=== PATIENT | male | born 1965 | race Caucasian/White ===

== ENCOUNTER 2022-06-15 16:25 | Outpatient (CLI) | payer OTHER, SELFPAY ==
[2022-06-15 21:40] LABS: Magnesium* 2.4 mg/dL (1.5-2.6)
== END 2022-06-15 16:26 | disposition home or self-care (01) ==
PROVIDERS: PCP Family Medicine; Visit Provider Family Medicine
DX: Z00.00 Encounter for general adult medical examination without abnormal findings (principal); M79.604 Pain in right leg; M79.605 Pain in left leg; R25.2 Cramp and spasm
CPT/HCPCS: 83735

== ENCOUNTER 2022-06-25 14:26 | Outpatient (CLI) | payer OTHER, SELFPAY ==
--- NOTE | 2022-06-25 14:30 | MR_ITS ---
[facility] [address] [facility] [address] Phone:?[phone] Fax:?[phone] Referring Physician Information: Danilo Giordano M.D. [address] [facility] [address] Phone:?[phone] Fax:?[phone] Patient:?Renny Nava D.O.B:?1965 Sex:?Male Phone:?[phone] [facility] MRN:?[id number] Exam Date:?06/25/2022 ? EXAM: MR LUMBAR SPINE WITHOUT CONTRAST 1.5T CLINICAL INFORMATION: Anesthesia of the skin. No injury. Evaluate for neural impingement. TECHNICAL INFORMATION: T1, T2 and STIR sagittal sections through the lumbar spine with T1 and T2 FSE stacked axial sections and T2 FSE angled axial sections through L5-S1. COMPARISON IMAGES: MRI dated 10/17/2021 and x-rays dated 10/03/2021. INTERPRETATION:?Segmentation and Alignment: Lordotic alignment of five lumbar vertebrae with a mild lumbar curve to the left. Sacrum and Sacroiliac joints:?Normal sacrum and sacroiliac joints. L5-S1: Mild to moderate disc degeneration with dorsal bulging, normal facet joints and no stenosis or impingement. L4-5: Spondylosis with mild dorsal bulging, mild right facet arthrosis and no stenosis or impingement. L3-4: Spondylosis with mild disc space narrowing on the right, normal facet joints and no stenosis or impingement. L2-3, L1-2 and T12-L1: Intervertebral discs unremarkable with mild ventral spondylosis at T12-L1, normal facet joints and no stenosis or impingement. Conus: Normal signal intensity within the conus medullaris. No intradural mass or arachnoidal adhesions. Osseous and paraspinous structures: Normal signal intensity within the vertebral marrow spaces. No fracture or avulsion. No destructive bone lesion and no paraspinous mass. Incidental sigmoid diverticulosis. CONCLUSION: 1. Mild to moderate L5-S1 disc degeneration. 2. Mild right facet arthrosis at L4-5. 3. No disc herniation, stenosis or neural impingement. 4. No distal cord lesion, intradural mass or arachnoidal adhesions. 5. Comparison with 06/16/2021 shows no significant interval change. Electronically signed on 06/25/2022 6:14:00 PM by Dipak Casarez M.D.
== END 2022-06-25 14:27 | disposition home or self-care (01) ==
LOC: MRI 14:27
PROVIDERS: PCP Family Medicine; Visit Provider Family Medicine
DX: R20.0 Anesthesia of skin (principal); M51.37 Other intervertebral disc degeneration, lumbosacral region; M79.604 Pain in right leg; M79.605 Pain in left leg
CPT/HCPCS: 72148

== ENCOUNTER 2022-06-28 16:22 | Outpatient (CLI) | payer OTHER, SELFPAY | END 2022-06-28 16:23 | disposition home or self-care (01) | LOC: LKVREF 16:24 | PROVIDERS: PCP Family Medicine; Visit Provider Family Medicine | DX: D72.829 Elevated white blood cell count, unspecified (principal); I10 Essential (primary) hypertension; M25.551 Pain in right hip; R25.2 Cramp and spasm | CPT/HCPCS: 84443 ==

== ENCOUNTER 2022-08-13 15:22 | Emergency (ER) | payer OTHER, SELFPAY ==
[2022-08-13 15:45] VITALS: BP 139/94; PULSE 81; RESP 18; TEMP 36.8; O2SAT 97; BMI 26.5
--- NOTE | 2022-08-13 16:31 | CRLHL7_ITS ---
For Patients: As a result of the Century Cures Act, medical imaging exams and procedure reports are released immediately into your electronic medical record. You may view this report before your referring provider. If you have questions, please contact your health care provider. INDICATION: EPIGASTRIC PAIN TECHNIQUE: Chest 2 views. COMPARISON: 02/23/14 FINDINGS: Cardiovascular and mediastinum: Heart size and vasculature are normal in caliber and appearance. Mediastinum is within normal limits. Lungs and pleural spaces: Lungs are clear. No sign of infiltrate or mass. No sign of pleural effusion. No pneumothorax. Bones and soft tissues: No significant findings. IMPRESSION: Unremarkable chest. Dictated by: Pedro Burnett MD @ 08/13/2022 17:13:59 (Electronically Signed)
--- NOTE | 2022-08-13 16:37 | ED_ITS ---
HPI - General Adult General Time Seen by Provider: 16:37 Date Seen: 08/13/22 Chief complaint: Abdominal Pain Stated complaint: PAIN IN CHEST JUST BELOW STERNUM - CAN'T SLEEP Time Seen by Provider: 08/13/22 16:21 History of Present Illness HPI narrative: 57-year-old male presents for evaluation of epigastric pain for 2 days. patient reports that for the last 2 days he has had a constant relatively severe his epigastrium. He points to just below his xiphoid as the location of this. He has not had any injury there. The pain does not radiate. Does not have shortness of breath or nausea or vomiting. No previous cardiac history. Re ports he has been able to eat and in fact when he eats it is a little better. When he was an empty stomach it feels a little worse. He has been taking a lot of ibuprofen several weeks due since his hip. He also takes omeprazole for chronic his stools have been normal without blood or melena. He has had no fever. Pain is not worse with activity or relieved by rest. He does not smoke. He previously drink alcohol but has not had any for about 2 months Related Data Home Medications Medication Instructions Recorded Confirmed diphenoxylate-atropine 2.5 1 tab PO DAILY PRN 06/15/22 06/15/22 mg-0.025 mg tablet omeprazole 20 mg capsule,delayed 20 mg PO DAILY 06/15/22 06/15/22 release magnesium oxide 500 mg tablet 500 mg PO QDAY 06/28/22 06/28/22 potassium 20 mg chewable tablet mg PO DAILY 07/12/22 07/12/22 Previous Rx's Medication Instructions Recorded diazepam 5 mg tablet (Valium) 2.5 mg PO BID PRN muscle spasm #30 06/28/22 tabs hydrocodone 5 mg-acetaminophen 325 1 tab PO Q6H PRN pain #14 tabs 06/28/22 mg tablet Allergies Allergy/AdvReac Type Severity Reaction Status Date / Time solifenacin Allergy Intermediate Pain Verified 07/12/22 15:11 naproxen Allergy Mild pain Verified 07/12/22 15:11 nortriptyline AdvReac Mild Vomiting Verified 07/12/22 15:11 Review of Systems Narrative: He has had right hip pain that has been diagnosed as bursitis. He has been taking a lot of ibuprofen for this. Or injury. No similar problems previously. [facility] Medical History Hypocalcemia Leukocytosis Surgical History History of bladder surgery History of hernia repair Family History Father Dementia Sister Hodgkin's lymphoma Mother Non-Hodgkin's lymphoma Social History Narrative: Non-smoker Rarely consumes alcohol Smoking Status: Never smoker Do you use any of these nicotine containing products: None Second hand tobacco smoke exposure: No How often do you have a drink containing alcohol: monthly or less How often do you have six or more drinks on one occasion: Never AUDIT-C Alcohol total score: 1 Non-prescribed substance use: denies use Exam Narrative: Exam Narrative: He is alert and appears in no distress. He gives his own history. Eyes are normal. Sclerae nonicteric. Oral supple without mass or adenopathy. No jugular venous distention. Respiratory good air exchange in all lung haskins. Cardiovascular: S1, S2, regular rate and rhythm. no murmur gallop or rub. Abdomen: BS are active. Abdomen is soft with mild epigastric tenderness that also extends into the right upper quadrant. I do not palpate a mass. There is no peritonitis. Extremities without edema. Says. He moves all 4 extremities well. Const: Vital Signs, click to edit/add: Vital Signs - 24 hr 08/13/22 15:45 08/13/22 17:49 Temperature 98.2 F Pulse Rate [Right Pulse Oximeter] 81 62 Respiratory Rate 18 Blood Pressure [Ri ght Upper Arm] 139/94 H 138/94 H Pulse Oximetry 97 95 Oxygen Delivery Me thod Room Air Documenting provider has reviewed patient's vital signs: yes Course Vital Signs Vital signs: Initial Vital Signs Temperature 98.2 F 08/13/22 15:45 Temperature Source Temporal Artery Scan 08/13/22 15:45 Pulse Rate 81 08/13/22 15:45 Respiratory Rate 18 08/13/22 15:45 Blood Pressure 139/94 H 08/13/22 15:45 Blood Pressure Mean 109 08/13/22 15:45 Blood Pressure Position Sitting 08/13/22 15:45 Pulse Oximetry 97 08/13/22 15:45 Oxygen Delivery Method 08/13/22 15:45 Vital Signs Temperature 98.2 F 08/13/22 15:45 Pulse Rate 81 08/13/22 15:45 Respiratory Rate 18 08/13/22 15:45 Blood Pressure 139/94 H 08/13/22 15:45 Pulse Oximetry 97 08/13/22 15:45 Oxygen Delivery Method 08/13/22 15:45 Temperature 98.2 F 08/13/22 15:45 Pulse Rate 62 08/13/22 17:49 Respiratory Rate 18 08/13/22 15:45 Blood Pressure 138/94 H 08/13/22 17:49 Pulse Oximetry 95 08/13/22 17:49 Oxygen Delivery Method 08/13/22 15:45 Medical Decision Making Lab Data Labs: Lab Results 08/13/22 08/13/22 08/13/22 Range/Units 16:31 17:05 17:05 WBC 8.96 (4.50-11.00) K/uL RBC 5.47 (4.30-5.90) m/uL Hgb 16.7 (13.5-17.5) gm/dL Hct 48.9 (37.0-53.0) % MCV 89 (80-100) fL MCH 31 (26-34) pg MCHC 34 (32-36) gm/dL RDW Coeff of Corie 12.7 (11.5-15.5) % Plt Count 272 (140-440) K/uL Neut % (Auto) 74.7 H (42.0-72.0) % Lymph % (Auto) 14.7 L (20-44) % Josephine % (Auto) 9.5 (0.0-11.0) % Eos % (Auto) 0.6 (0.0-7.0) % Baso % (Auto) 0.3 (0.0-3.0) % Neut # (Auto) 6.70 (1.7-7.0) K/uL Lymph # (Auto) 1.30 (0.90-2.90) K/uL Josephine # (Auto) 0.90 (0.00-0.90) K/UL Eos # (Auto) 0.05 (0.00-0.50) K/uL Baso # (Auto) 0.03 (0.00-0.30) K/uL Abs Immat Gran (auto) 0.02 (0.00-0.30) K/uL Sodium 139 (135-149) mmol/L Potassium 3.5 L (3.6-5.1) mmol/L Chloride 105 (96-114) mmol/L Carbon Dioxide 25 (20-32) mmol/L BUN 15 (7-30) mg/dL Creatinine 0.8 (0.5-1.5) mg/dL Estimated Creat Clear 106.46 Estimated GFR 104 ml/min Glucose 110 (60-115) mg/dL Calcium 9.0 (8.4-10.6) mg/dL Total Bilirubin 0.5 (0.1-1.5) mg/dL Direct Bilirubin 0.2 (0.0-0.5) mg/dL AST 24 (12-35) U/L ALT 17 (4-50) U/L Alkaline Phosphatase 66 (40-150) U/L Total Protein 7.3 (6.0-8.3) g/dL Albumin 4.4 (3.3-5.0) g/dL Lipase 162 (23-300) U/L POC Troponin I 0.00 L (0.01-0.04) ng/ml ECG Data Attestation: I personally reviewed and interpreted this ECG as follows: (Normal sinus rhythm. No acute ST-T changes) Discharge Plan Discharge Clinical Impression: Acute epigastric pain Patient Disposition: Home, Self-Care Condition: Improved Additional Instructions: The most likely cause of your pain is gastritis due to excessive ibuprofen use. Stop taking ibuprofen and take omeprazole 40 mg a day. You may use antacids as necessary. I recommend you get upper endoscopy to evaluate your stomach lining. Your doctor can arrange this. If you are not getting better with this evaluation I would consider evaluating her gallbladder further as the next step. Activity Level: No Restrictions Discharge Diet: Regular Prescriptions: No Action magnesium oxide 500 mg tablet 500 mg PO QDAY diazepam [Valium] 5 mg tablet 2.5 mg PO BID PRN (Reason: muscle spasm) Qty: 30 1RF hydrocodone-acetaminophen 5-325 mg tablet 1 tab PO Q6H PRN (Reason: pain) Qty: 14 0RF potassium 20 mg tablet,chewable PO DAILY omeprazole 20 mg capsule,delayed release(DR/EC) 20 mg PO DAILY Label Comments: TAKE 1 CAPSULE (20 MG) BY MOUTH DAILY diphenoxylate-atropine 2.5-0.025 mg tablet 1 tab PO DAILY PRN Label Comments: TAKE 1 TABLET BY MOUTH TWICE DAILY NEEDED Follow Up/Referrals: Danilo Giordano MD [Primary Care Provider] - (In 1 week) Stand Alone Forms: [employer] Info Instructions
--- OUTSIDE RECORDS SUMMARY | 2022-08-13 17:21 | XMS_ITS ---
:1965 Author Care Team Providers Name Role Phone ANTHONY LUNA MD Referring Provider [phone] Allergies Code Code System Name Reaction Severity Status Onset 170261 RxNorm Aleve ? ? Active ? 907927 RxNorm Vesicare ? ? Active ? Medications Name Status Start Date Stop Date ? ? cephalexin 500 mg capsule Completed ? 2021 TAKE ONE CAPSULE BY MOUTH THREE TIMES DAILY ciprofloxacin 500 mg tablet Completed ? 12/03 Take 1 tablet every 12 hours by oral route for 7 days. diphenoxylate-atropine 2.5 mg-0.025 mg tablet Completed ? 03/22/2022 TAKE 1 TABLET BY MOUTH TWICE DAILY NEEDED hydrochlorothiazide 12.5 mg capsule Active ? Not available TAKE 1 CAPSULE (12.5 MG) BY MOUTH DAILY hydrocortisone 2.5 % topical cream with perineal applicator Comp leted ? 12/28/2021 APPLY RECTALLY TWICE DAILY NEEDED omeprazole 20 mg capsule,delayed release Active ? Not available TAKE 1 CAPSULE (20 MG) BY MOUTH DAILY oxybutynin chloride ER 5 mg tablet,extended release 24 hr Comple lupe ? 12/28/2021 TAKE 1 TABLET BY MOUTH DAILY oxycodone 5 mg tablet Completed ? 12/28/2021 TAKE ONE TABLET BY MOUTH EVERY FOUR HOURS phenazopyridine 200 mg tablet Completed ? TAKE ONE TABLET BY MOUTH THREE TIMES DAILY NEEDED tramadol 50 mg tablet Completed ? 03/22/2022 TAKE 1 TABLET BY MOUTH EVERY 6 HOURS NEEDED Problems Name Status Onset Date Source ? Chronic Prostatitis Active 03/12/2017 History Overactive Bladder Active 03/12/2017 History Procedures Date Name Performed by ? 12/02/2012 Colonoscopy Thru Stoma Spx Information n ot available Notes: 12/02/2012 - COLONOSCOPY THRU S LINDY SPX 03/12/2012 Revise/remove Neuroelectrode Information not available Notes: 03/12/2012 - REVISE/REMOVE NEUR OELECTRODE 02/27/2012 Opn Impltj Tammy Sacral Nerve Information not available Notes: 02/27/2012 - IMPLANT NEUROELECT RODES 01/16/2012 Implant Neuroelectrodes Information not available Notes: 01/16/2012 - IMPLANT NEUROELECT RODES 02/06/2011 Anal/urinary Muscle Study Information no t available Notes: 02/06/2011 - ANAL/URINARY MUSCL E STUDY 02/06/2011 Cystometrogram W/vp integrity&up Information not a vailable Notes: 02/06/2011 - CYSTOMETROGRAM W/V P&UP 02/06/2011 Electro-uroflowmetry First Information n ot available Notes: 02/06/2011 - ELECTRO-UROFLOWMET RY FIRST 02/06/2011 Intraabdominal Pressure Test Information not available Notes: 02/06/2011 - INTRAABDOMINAL PRE SSURE TEST 01/24/2011 Cystoscopy Information not avai lable Notes: 01/24/2011 - CYSTOSCOPY 01/24/2011 Us Urine Capacity Measure Information no t available Notes: 01/24/2011 - US URINE CAPACITY MEASURE 10/10/2010 Us Urine Capacity Measure Information no t available Notes: 10/10/2010 - US URINE CAPACITY MEASURE ? Hernia Repair W/mesh Information not kizzy ilable Notes: Hernia Repair 12/04/2021 CT, [facility] [address] [place] [address] (Work Place) Notes: HN - Patient indicated: Cystome trogram w/vp integrity&up is not accurate. Results Lab Results None recorded. Past Encounters 03/22/2022 Pelvic and Perineal Pain Dipak Lynch, PAC: [address] [facility] , [address] [address], Ph. 12/28/2021 Pelvic and Perineal Pain; Screening for Malignant Neoplasm of Prostate Dipak Lynch, PAC: [address] [facility] , [address] [address], Ph. 11/16/2021 Chronic Prostatitis Dipak Lynch, PAC: [address] [facility] , [facility] [address], [place] [address], Ph. Social History Tobacco Smoking Status Never Smoker Vaccine List Vaccine Type COVID-19 (SARS-COV-2) vaccine, unspecifi ed 02/15/2021 03/02/2021 03/15/2021 COVID-19, mRNA, LNP-S, PF, 100 mcg/0.5 m L dose (Moderna) 02/15/2021 03/15/2021 Tdap 04/09/2016 Plan of Care Reminders Provider Appointments None recorded. ? ? Lab None recorded. ? ? Referral None recorded. ? ? Procedures None recorded. ? ? Surgeries None recorded. ? ? Imaging None recorded. ? ? Vitals 03/22/2022 10:30AM ESTABLISHED 20 Height Weight BMI 5 ft 11 in 185 lbs 25.8 kg/m2 12/28/2021 10:45AM ESTABLISHED 15 Height Weight BMI 5 ft 11 in 182 lbs 25.4 kg/m2 11/16/2021 03:30PM ESTABLISHED 30 Height Weight BMI 5 ft 11 in 180 lbs 25.1 kg/m2
--- OUTSIDE RECORDS SUMMARY | 2022-08-13 17:21 | XMS_ITS | Continuity of Care Document ---
:1965 Author Organization [facility] Address [address] [address] [place] [address] Phone Care Team Providers Name Role Phone Go Dave MITCHELL Unavailable Unavailable Allergies, Adverse Reactions, Alerts Substance Reaction Status Criticality No Known allergies Medications Medication Instructions Dosage Effective Dates Status Comment s (start - stop) diphenoxylate-atropine take 1 Tablet (2.5MG) 2.5 MG - Active 2.5 mg-0.025 mg tablet by oral route 4 times every day as needed cyclobenzaprine 10 mg take 1 Tablet (10MG) 10 MG - A ctive tablet by oral route every day prn ibuprofen 200 mg tablet take 1 - 2 Tablet 200 MG - Ac tive (200MG) by oral route every 6 hours as needed with food Antacid 550 mg-110 mg take one tablet as - Act isabel chewable tablet needed ranitidine 75 mg tablet take 1 tablet (75MG) - Active by oral route every day as needed oxybutynin chloride ER take 1 tablet (10MG) 10 MG - Act isabel 10 mg tablet,24 hr by oral route every extended release day Procedures Procedure Date Colonoscopy Flex; W/bx 1/mx Level Iv-surg Path Gross/micro Offic Cons New/estab Mod Routine Serum Collection [id number] Thyroid Stim Hormone Advance Directives Directive Yes / No Effective Date File Name No Information Encounters Encounter Practice Location Reason(s) Diagnoses Date Provider Provide rs Description For Visit Copied on Encounter [facility] No Information Alexey MITCHELL Refer ring [facility] Dave. Provider: [facility], Endoscopy [address] [place], [place], [place], [address], [id number], [place], [place], tel:+ [phone] , [place]. tel: [phone] [facility] Diverticulosis Of Emily MITCHELL R eferring [facility] Brittani. Prov ider: [facility], Endoscopy rticulosis Of [address] Colon [place] [address], [place], [place] [address] [place], [place], [address], [place] [id number], [address], [place], [place], [place], tel:+ [phone] [place], [phone] , [place]. tel: tel: [phone] Offic Cons [facility] Abdominal Diarrhea Emily MITCHELL [facility] pain Brittani. Provider: [facility], (chief [address] complaint) [place] [address], [address], [place], [place] [address] [place], [place], (soft) [address], [place] [phone], ([address], [place] complaint) [place], [place], [place], tel:+ [phone] [place], [phone] , [place]. tel: tel: [phone] Family History Family Member Type Diagnosis Age At Onset First degree family Problem (finding) No Family history of No history history of Colon Polyps First degree family Problem (finding) No history of Cancer, colo n history First degree family Problem (finding) Grandmother hx of colon history cancer First degree family Problem (finding) No history of Crohn's history First degree family Problem (finding) No history of Ulcerative history Colitis Payers Payer name Insurance type Covered alliance party ID Authorization(s ) [employer] [facility] [id number] Social History Type Description Quantity Date Captured Comments Sex Male Smoking Status No Information Chief Complaint And Reason For Visit No Information Reason For Referral Reason For Referral No Information Plan Of Treatment Date Type Action Status No Information History Of Present Illness Encounter Date Complaint History Of Present I llness No Information Functional Status Date Functional Assessment No Information Instructions Date Instruction Additional Informati on No Information Assessments Type Assessment Date No Information Patient Care Teams Name Effective Dates (start - stop) Status M embers No Information
--- OUTSIDE RECORDS SUMMARY | 2022-08-13 17:21 | XMS_ITS | Clinical Summary ---
:1965 Author Organization [facility] [place] [address] Care Team Providers Name Role Phone Danilo Giordano MD Primary Care Provider Allergies No known active allergies Medications Medication Sig Dispensed Refills Start Date End Date Status promethazine-codeine Take 5 mL by 120 mL 0 12/01/2012 Active (PHENERGAN WITH CODEINE) mouth every 4-6 6.25-10 mg/5 mL syrup hours as needed. ciprofloxacin (CIPRO) Take 1 tablet by 20 tablet 0 12/01/2012 Active 500 mg tablet mouth 2 times daily. cefuroxime axetil Take 1 tablet by 20 tablet 0 12/12/2012 Active (CEFTIN) 500 mg tablet mouth 2 times daily for 10 days Active Problems Not on file Encounters Date Type Specialty Care Team Description 07/13/2022 Hospital Encounter Pedro Jaramillo Ch, MD Rivera, Sidney W II, PT Discharge Summary - Domingo Camp II, PT - 07/13/2022 1:[address] [facility] Physical Therapy Discharge Summary Patient Name: Renny burns Date of Service: 07/13/2022 Start of Service: 05/09/22 Visit Count: Visit Count: 6 PT MEDICAL/TREATMENT DIAGNOS IS Greater trochanteric bursiti s of right hip ICD-10 M70.61 Referring MD/Provider: Pedro Jaramillo MD Insurance: [facility] DISCHARGE NOTE Start of Service: 05/09/22 End date of service: 2 Therapy Completed: Yes Final Outcome Tool: Tool Com plete: Final outcome tool completed Discharge Education: Patient education was given regarding home exercise program progression, maintenance of current status, and when to follow up with primary care provider. Therapist Assessment Patient (Renny) returns to 6th physical therapy session in treatment of chronic right lateral hip/thigh pain (greater trochanter bursitis), posterior right thigh (hamstrings tendinopathy), and right b uttocks (piriformis strain) pain to which he reports some improvement in low back pain symptoms, but no change in right buttocks or posterior thigh pain or functional ability. Renny demonstrates measure ments and finding related to compensatory muscle overuse strain of right vastus lateralis, piriformis, hamstrings, and tensor fascia cassandra, preceded by faulty, habitual postural alignment adaptations. He continues to presents in st ate of bilateral anterior pelvic tilt (indicated by (+) Miller's Test) and asymmetrical hip FA ER and IR PROM, which alters gait mechanics, compresses lumbar spine, and affects muscle activation of lumbo- pelvic-femoral stabilizers. Renny demonstrates significant sympathetic nervous system tone and inability to inhibit tone with use of any home exercise program technique in se ssion which typically indica yuly a high level of inflammation in multiple systems. He demonstrates proficiency of home exercise program in session. FOTO scores did not progress towards predicted. Dischar ged to home exercise program . Recommend return to physician for further assessment and recommendations on symptoms management. SUBJECTIVE SUBJECTIVE Patient Symptoms : Same Change in Functional Status: No Comments : Renny reports hav ing less cramping in the legs. The right lower back is better, but right outer hip, lateral thigh, and buttocks pain persist. Acute Pain Intensity (0-10): 6 Location: Right;Hip;Groin;Bi lateral;Lower;Leg (Greater trochanter) Quality: Ache;Cramping;Throb hali;Tightness;Pain;Pressure;Sore;Spasm Compliance with home exercis e program: Yes Home Exercise Comments : Per forming regularly, no concerns OBJECTIVE OUTCOME MEASURES (last 48 ho urs) Outcome Measures Row Name 07/13/22 1405 PT FOTO GROUP PT Initial FOTO FS 65 PT Predicted FOTO FS Change 16 PT Predicted FOTO FS Goal 8 1 PT Current FOTO FS 55 FOTO DOCUMENTATION 1 FOTO S core Postural??Screening (PROM, M MT, and Special Tests): Wowiz-Jsprit-Moqtmev ?? Left Right Hip IR (FA IR: seated) 43??d egrees 47 degrees FA IR Strength 4 / 5 (latera l knee, vastus lateralis, tensor fascia cassandra) 4-??/ 5 (gastrocnemius/soleus) Hip ER (FA ER: seated) 40??d egrees?? 35??degrees?? FA ER Strength 4 / 5 (adduct or) 4 / 5 (adductor) Miller's Test +?? + INTERVENTION Today's Interventions 1. Neuromuscular re-educatio n: To retrain functional movement patterns and improve biomechanics. (32 minutes) - Modified All-4 Belly Lift: 5 breaths, 5 sets. * Renny benefited from verba l and tactile cues to perform with good technique and engage hamstrings, gluteus medius/keith, and IO/TAs abdominals. - Left Side Lying, un-resist ed right gluteus keith (Left AF IR with Right FA ER): 5 breaths, 5 sets. * Patient benefited from geovani bal and tactile cues to help correctly perform hip shifting during technique to best activate hip rotators and prevent accessory rotation on lumbar spine. - Transfers: Sitting to [facility], Standing to sitting, Floor to standing. Emphasized sense of heel and arch pressure to use hip extensors to get up. 2. Therapeutic Exercise: To improve muscle strength, joint range of motion, and muscle endurance. (12 minutes) - Modified All Four Inferior Glute Keith, Adductor Andrew, and Quadratus Femoris Stretch: 5 breaths, 5 sets. * Patient required verbal an d tactile cues to help correctly position hip for optimal stretch and avoid lower back strain. Home Exercise Program: Modif ied All-4 Belly Lift; Seated Alternating Resisted Reciprocal Quadriceps Sets; Modified All Four Inferior Glute Keith, Adductor Andrew, and Quadratus Femoris Stretch; Left S mode Lying, un-resisted right gluteus keith (Left AF IR with Right FA ER). GOALS Patient goal: lower pain le katie in right hip and buttocks to allow improved tolerance to work, ADLs, and walking without limitations in 3-4 weeks or less. Goal Status Comments: Unable --Renny continues to report moderate right hip pain, and with occasional leg cramping, impacting tolerance to work, ADLs, walking, and other household duties. Patient will demonstrate: 50 -60 degrees of B hip FA ER PROM and 35-40 degrees of B hip FA IR PROM in order to: demonstrate optimized hip rotation to prevent compensatory rotation in SIJ contributing to pain pattern and disability in (weeks): 8 weeks Goal Status: Progress toward s goal Goal Status Comments: Improv ing--Renny demonstrates ability to increase bilateral hip FA ER PROM with use of HEP in session, required to reduce demand for accessory rotation through SIJ and lumbar spine contributing to pain patter n. He has resolved asymmetry, which typically reduces torque on SIJ and lumbar spine. Patient will demonstrate: 5- /5 MMT or greater strength of hip, knee, and trunk stabilizers in order to: to demonstrate strength required to prevent compensatory muscle overuse strain in R VL of quadrice ps and R piriformis contribu ting to pain pattern in (weeks): 10 weeks Goal Status: Not met Goal Status Comments: Unable --Renny continues to demonstrate moderate to significant functional strength deficits in knee, hip, and trunk stabilizers contributing to compensatory muscle overuse strain o f right vastus lateralis and continued right greater trochanter bursitis pains. Patient will demonstrate: 1/ 10 or less right hip pain in order to: improve tolerance to work, sitting prolonged, and other ADLs without limitations in (weeks): 8 weeks Goal Status: Not met Goal Status Comments: Unable --Renny continues to report greater than 1/10 on average right hip pain and leg cramping impacting tolerance to work, walking, and other household duties. PARTICIPATION Patient and/or caregiver par ticipated in goal selection and understand plan of care: Yes ADAPTATIONS Are cultural/age or other sp ecial adaptations required?: No PLAN Plan for next session: Disch arged to HEP for self-management of condition. 07/13/2022 Orders Only Domingo Camp II, PT <No scans attached> 07/13/2022 Travel 07/03/2022 Hospital Encounter Pedro Jaramillo Ch, MD Rivera, Sidney W II, PT 07/03/2022 Travel 06/26/2022 Hospital Encounter Pedro Jaramillo Ch, MD Rivera, Sidney W II, PT 06/26/2022 Travel 06/12/2022 Hospital Encounter Pedro Jaramillo Ch, MD Rivera, Sidney W II, PT 06/12/2022 Travel 05/28/2022 Hospital Encounter Pedro Jaramillo MD Conrado Marsh Sidney W II, PT 05/28/2022 Travel from Last 3 Months Social History Tobacco Use Types Packs/Day Years Used Date Never Assessed Sex Assigned at Date Recorded Not on file Plan of Treatment Health Maintenance Due Date Last Done Comments Tdap 1977 Depression screening for age 12+ 1978 BMI (ht and wt on same day) for age 18+ 1984 Hepatitis C screening for age 18-79 1984 Tetanus booster 1986 Colonoscopy through age 75 2011 Lipids for age 45-75 2011 Zoster (shingles) series for age 50+ (1 of 2016 2) COVID-19 vaccine series (3 - Booster for 08/15/2021 021, 02/15/2021 Moderna series) Influenza for age 50-64 08/02/2022 Results Not on filefrom Last 3 Months Insurance Payer Benefit Plan / Subscriber ID Effective Dates Phone Addre ss Type Group [facility] SHARED [id number] 2021-Presen [address] [address] [place] [address] [facility] SHARED [id number] 2021-Presen [address] [place] [address] Care Teams Film Crew Member Relationship Specialty Start Date End Date Danilo Giordano MD PCP - General Family Practice 12/21/21 [address] [place], [place] [address]
[2022-08-13 17:49] VITALS: BP 138/94; PULSE 62; O2SAT 95
[2022-08-13] MEDS: GI COCKTAIL (VISC LIDO/ANTACID) 30 ML PO (17:52)
[2022-08-13 18:09] LABS: Albumin* 4.4 g/dL (3.3-5.0); Basophils Absolute Auto 0.03 K/uL (0.00-0.30); Basophils Percent Auto 0.3 % (0.0-3.0); Chloride* 105 mmol/L (96-114); Eosinophils Absolute Auto 0.05 K/uL (0.00-0.50); Eosinophils Percent Auto 0.6 % (0.0-7.0); Hematocrit 48.9 % (37.0-53.0); Hemoglobin* 16.7 gm/dL (13.5-17.5); Immature Granulocytes Abs Auto 0.02 K/uL (0.00-0.30); Lymphocytes Percent Auto 14.7 % (20-44); Mean Corpuscular HGB Conc 34 gm/dL (32-36); Mean Corpuscular Hemoglobin 31 pg (26-34); Mean Corpuscular Volume 89 fL (80-100); Monocytes Percent Auto 9.5 % (0.0-11.0); Neutrophils Percent Auto 74.7 % (42.0-72.0); Platelet Count* 272 K/uL (140-440); RDW Coefficient of Variation % 12.7 % (11.5-15.5); Red Blood Count 5.47 m/uL (4.30-5.90); White Blood Count* 8.96 K/uL (4.50-11.00)
[2022-08-13 18:10] LABS: Potassium* 3.5 mmol/L (3.6-5.1); Sodium* 139 mmol/L (135-149)
[2022-08-13 18:12] LABS: Alkaline Phosphatase* 66 U/L (40-150); Aspartate Amino Transferase* 24 U/L (12-35); Bilirubin Direct* 0.2 mg/dL (0.0-0.5); Bilirubin Total* 0.5 mg/dL (0.1-1.5); Blood Urea Nitrogen* 15 mg/dL (7-30); Carbon Dioxide* 25 mmol/L (20-32); Creatinine* 0.8 mg/dL (0.5-1.5); Est. Creatinine Clearance* 106.46; Estimated Glomerular Filt Rate 104 ml/min; Glucose* 110 mg/dL (60-115); Total Protein* 7.3 g/dL (6.0-8.3)
[2022-08-13 18:13] LABS: Alanine Aminotransferase* 17 U/L (4-50); Lipase* 162 U/L (23-300)
[2022-08-13 18:15] LABS: Slide Review Reflex No
[2022-08-13 19:00] LABS: Troponin I* < 0.01 ng/mL (0.01-0.04)
== END 2022-08-13 19:15 | disposition home or self-care (01) ==
PROVIDERS: Emergency Provider Family Medicine; PCP Family Medicine
DX: R10.13 Epigastric pain (principal)
CPT/HCPCS: 36415; 71046; 80048; 80076; 83690; 84484; 85025; 93005; 99284; A9270

== ENCOUNTER 2022-09-06 10:56 | Outpatient (CLI) | payer OTHER, SELFPAY ==
--- OUTSIDE RECORDS SUMMARY | 2022-09-06 10:59 | XMS_ITS ---
:1965 Author Care Team Providers Name Role Phone ANTHONY LUNA MD Referring Provider [phone] Allergies Code Code System Name Reaction Severity Status Onset 154708 RxNorm Aleve ? ? Active ? 380863 RxNorm Vesicare ? ? Active ? Medications [...] ANAL/URINARY MUSCL E STUDY 02/06/2011 Cystometrogram W/vp digital marketing&up Information not a vailable Notes: 02/06/2011 - [...] Repair 12/04/2021 CT, Urogram [facility] [address] [facility] [address] [place] [address] (Work Place) Notes: HN - Patient indicated: Cystome trogram w/vp digital marketing&up is not accurate. Results Lab Results None recorded. Past Encounters 03/22/2022 Pelvic and Perineal Pain Dipak Lynch, PAC: [address] [facility] , [address] [address], Ph. 12/28/2021 Pelvic and Perineal Pain; Screening for Malignant Neoplasm of Prostate Dipak Lynch, PAC: [address] [facility] , [address] [address], Ph. 11/16/2021 Chronic Prostatitis Dipak Lynch, PAC: [address] [facility] , [facility] [address], [place] [address], Ph. Social History Tobacco Smoking Status Never [...]
--- OUTSIDE RECORDS SUMMARY | 2022-09-06 10:59 | XMS_ITS | Clinical Summary ---
:1965 Author Organization [facility] [place] [address] Care Team Providers Name Role Phone Danilo [...] PT - 07/13/2022 1:[address] [facility] Physical Therapy Discharge Summary Patient Name: Renny burns Date of Service: 07/13/2022 Start of Service: 05/09/22 Visit Count: Visit Count: 6 PT MEDICAL/TREATMENT DIAGNOS IS Greater trochanteric bursiti s of right hip ICD-10 M70.61 Referring MD/Provider: Pedro Jaramillo MD Insurance: [facility] ([facility] S ERVICES) DISCHARGE NOTE Start of Service: [...] Postural??Screening (PROM, M MT, and Special Tests): Umtwo-Gtjljn-Qpmllzi ?? Left Right Hip IR (FA IR: [...] lumbar spine. - Transfers: Sitting to [facility], Standing to sitting, Floor to standing. 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
[2022-09-07 00:16] LABS: PSA Screen* 2.65 ng/mL (0.10-4.00)
== END 2022-09-06 10:57 | disposition home or self-care (01) ==
LOC: LKVREF 10:57
PROVIDERS: PCP Family Medicine; Visit Provider Family Medicine
DX: Z00.00 Encounter for general adult medical examination without abnormal findings (principal); I10 Essential (primary) hypertension; Z12.5 Encounter for screening for malignant neoplasm of prostate
CPT/HCPCS: 84153

== ENCOUNTER 2022-09-18 08:55 | Outpatient (CLI) | payer OTHER, SELFPAY ==
--- OUTSIDE RECORDS SUMMARY | 2022-09-18 09:13 | XMS_ITS | Clinical Summary ---
:1965 Author Organization [facility] [place] [address] Care Team Providers Name Role Phone Danilo [...] II, PT - 07/13/2022 1:45 PM CDT [facility] Physical Therapy Discharge Summary Patient Name: Renny burns Date of Service: 07/13/2022 Start of Service: 05/09/22 Visit Count: Visit Count: 6 PT MEDICAL/TREATMENT DIAGNOS IS Greater trochanteric bursiti s of right hip ICD-10 M70.61 Referring MD/Provider: Pedro Jaramillo MD Insurance: [facility] S ERVICES) DISCHARGE NOTE Start of [...] Postural??Screening (PROM, M MT, and Special Tests): Jyjpy-Mdimkg-Siicuhh ?? Left Right Hip IR (FA IR: [...] lumbar spine. - Transfers: Sitting to [facility], Standing to sitting, Floor to standing. Emphasized [...] Rivera, Sidney W II, PT 06/26/2022 Travel from Last 3 Months Social History [...] Effective Dates Phone Addre ss Type Group [facility] SHARED [id number] 2021-Presen [address] [address] [place] [address] [facility] SHARED [id number] 2021-Presen [address] [place] [address] Care Teams Mixer Attendant Relationship Specialty Start Date End Date Danilo Giordano MD PCP - General Family Practice 12/21/21 [address] [place] [address]
--- OUTSIDE RECORDS SUMMARY | 2022-09-18 09:13 | XMS_ITS ---
:1965 Author Care Team Providers Name Role Phone ANTHONY LUNA MD Referring Provider [phone] Allergies Code Code System Name Reaction Severity Status Onset 896601 RxNorm Aleve ? ? Active ? 444820 RxNorm Vesicare ? ? Active ? Medications [...] ANAL/URINARY MUSCL E STUDY 02/06/2011 Cystometrogram W/vp clinical research&up Information not a vailable Notes: 02/06/2011 - [...] CT, Urogram [facility] [address] [facility] [address] [place] [address] (Work Place) Notes: HN - Patient indicated: Cystome trogram w/vp clinical research&up is not accurate. Results Lab Results None recorded. Past Encounters 03/22/2022 Pelvic and Perineal Pain Dipak Lynch, PAC: [address] [facility] , [address] [address], Ph. 12/28/2021 Pelvic and Perineal Pain; Screening for Malignant Neoplasm of Prostate Dipak Lynch, PAC: [address] [facility] , [address] [address], Ph. 11/16/2021 Chronic Prostatitis Dipak Lynch, PAC: [address] [facility] , [facility] [address], [place] [address], Ph. Social History Tobacco Smoking Status Never [...]
--- NOTE | 2022-09-18 09:15 | MR_ITS ---
[facility] [address] [facility] [address] Phone:?[phone] Fax:?[phone] Referring Physician Information: Danilo Giordano M.D. [address] [address] Phone:?[phone] Fax:?[phone] Patient:Philippe Nava D.O.B:?1965 Sex:?Male Phone:?[phone] [facility] MRN:?[id number] Exam Date:?09/18/2022 ? EXAM: MRI EXAMINATION OF THE RIGHT HIP CLINICAL INFORMATION: Male, 57 years old, with right hip pain. INDICATION: Evaluate hip pain. PRIOR SURGERY: None reported. PLAIN FILMS: Pelvis radiograph dated 10/19/2021. COMPARISONS: No prior MRIs available. TECHNICAL INFORMATION: Using a 1.5T MR scanner and a localizing surface coil: coronals: PD, T2 sagittals: PD, T2 oblique axials: PD straight axials: PDFS coronals: T1, STIR of pelvis and hips SEDATION: None CONTRAST: None FINDINGS: Hip joint: Physiologic hip effusion. No chondromalacia or focal full-thickness defect of the femoral head or acetabular articular cartilage. No intra-articular bodies. Labrum: Intrasubstance degeneration and poorly defined fraying/tearing of the anterior/anterosuperior labrum over a length of 2.2 cm (axial PD oblique series 6 images 11-17). No paralabral cyst. Proximal femur: No femoral occult fracture, stress injury, marrow edema or osteonecrosis. Loss of normal femoral head/neck junction offset with mild/moderate anterosuperior femoral cam morphology. No fibrocystic change. Based on oblique axial series 6 image 13 at approximately 1:30 o'clock anterosuperiorly, the maximum femoral alpha angle measures approximately 69?. Acetabulum: No subchondral cysts, periacetabular ossicles or marrow edema. Version: Decreased cranial acetabular anteversion borders on retroversion. Coverage: Right lateral center edge (CE) angle measures approximately 27? (normal 25?-39?), midline coronal series 4 image 16, corrected for pelvic obliquity. Ligamentum teres: Ligamentum teres is intact and unremarkable. Iliofemoral ligament: The iliofemoral ligament is intact without thickening. Pelvis osseous structures: Sacral ala and sacroiliac joints: No stress/insufficiency fractures or marrow edema/pathology. No demonstrable sacroiliitis. Pubic rami and pubic symphysis: No stress/insufficiency fractures or marrow edema/pathology. Normal alignment without hypertrophy or evidence of ongoing osteitis pubis. Myotendinous structures: Gluteus abductors: No convincing insertional tendinopathy or tear of gluteus minimus or medius. Adductors: No demonstrable tendinopathy or strain/tear. Hamstrings: Intact semimembranosus, semitendinosus and biceps femoris tendons, without tendinopathy or tear. Flexors: Intact iliopsoas and rectus femoris, without strain/tear. External rotators: Intact, without demonstrable ischiofemoral impingement. Gluteal aponeurotic fascia and IT band: Unremarkable. Bursae: No demonstrable trochanteric, iliopsoas, or iliopectineal bursitis. Intrapelvic contents: Free fluid: No free fluid seen within the pelvis. Pelvic viscera: No discrete intrapelvic mass is identified. Colonic diverticulosis is noted throughout the sigmoid colon, without evidence of acute diverticulitis. Lymph nodes: No lymphadenopathy by MRI size criteria. Neurovascular structures: No discrete cyst, mass or other compression upon the portions visualized of sciatic or femoral nerves. Lumbar spine: The visualized portions of the lower lumbar spine are unremarkable. IMPRESSION: 1. Intrasubstance degeneration and poorly defined tearing of the anterior/anterosuperior labrum measuring 2.2 cm. No paralabral cyst. 2. Mild-moderate anterosuperior femoral cam morphology, which may predispose to femoroacetabular impingement (CHLOE). No definite evidence of a pincer mechanism of CHLOE. 3. Colonic diverticulosis. 4. No full-thickness chondral defect or evidence of hip joint osteoarthritis. 5. No fracture or osseous stress reaction. 6. No myotendinous abnormality. BC Electronically signed on 09/18/2022 11:02:00 AM by Fermín Reyes M.D.
== END 2022-09-18 08:56 | disposition home or self-care (01) ==
LOC: MRI 08:56
PROVIDERS: PCP Family Medicine; Visit Provider Family Medicine
DX: M25.551 Pain in right hip (principal); K57.30 Diverticulosis of large intestine without perforation or abscess without bleeding; S73.101A Unspecified sprain of right hip, initial encounter
CPT/HCPCS: 73721

== ENCOUNTER 2022-09-24 10:33 | Outpatient (CLI) | payer OTHER, SELFPAY ==
--- OUTSIDE RECORDS SUMMARY | 2022-09-24 10:37 | XMS_ITS | Clinical Summary ---
:1965 Author Organization [employer] [facility] [place] [address] Care Team Providers Name Role Phone Danilo [...] II, PT - 07/13/2022 1:45 PM CDT [facility] Physical Therapy Discharge Summary Patient Name: Renny burns Date of Service: 07/13/2022 Start of Service: 05/09/22 Visit Count: Visit Count: 6 PT MEDICAL/TREATMENT DIAGNOS IS Greater trochanteric bursiti s of right hip ICD-10 M70.61 Referring MD/Provider: Pedro Jaramillo MD Insurance: [facility] ([facility] S ERVICES) DISCHARGE NOTE Start of Service: [...] Postural??Screening (PROM, M MT, and Special Tests): Jixfq-Pgbqmb-Jljcghh ?? Left Right Hip IR (FA IR: [...] lumbar spine. - Transfers: Sitting to [facility], Standing to sitting, Floor to standing. Emphasized [...] Effective Dates Phone Addre ss Type Group [facility] SHARED [id number] 2021-Presen [address] [address] [place] [address] [facility] [id number] 2021-Presen [address] [place] [address] Care Teams Corrective Therapy Aide Teacher Relationship Specialty Start Date End Date Danilo Giordano MD PCP - General Family Practice 12/21/21 [address] [place] [address]
--- OUTSIDE RECORDS SUMMARY | 2022-09-24 10:37 | XMS_ITS ---
:1965 Author Care Team Providers Name Role Phone ANTHONY LUNA MD Referring Provider [phone] Allergies Code Code System Name Reaction Severity Status Onset 936200 RxNorm Aleve ? ? Active ? 320453 RxNorm Vesicare ? ? Active ? Medications [...] ANAL/URINARY MUSCL E STUDY 02/06/2011 Cystometrogram W/vp foundation&up Information not a vailable Notes: 02/06/2011 - [...] Repair 12/04/2021 CT, Urogram [facility] [address] [facility] [address] [place] [address] (Work Place) Notes: HN - Patient indicated: Cystome trogram w/vp foundation&up is not accurate. Results Lab Results None recorded. Past Encounters 03/22/2022 Pelvic and Perineal Pain Dipak Lynch, PAC: [address] [facility] , [address] [address], Ph. 12/28/2021 Pelvic and Perineal Pain; Screening for Malignant Neoplasm of Prostate Dipak Lynch, PAC: [address] [facility] , [address] [address], Ph. 11/16/2021 Chronic Prostatitis Dipak Lynch, PAC: [address] [facility] , [facility] [address], [place] [address], Ph. Social History Tobacco Smoking Status Never [...]
--- NOTE | 2022-09-24 12:31 | W.ANESCHARGE ---
Anesthesia Charges Start Date/Time Anesthesia Start Date: 09/24/22 Anesthesia Start Time: 11:35 Stop Date/Time Anesthesia Stop Date: 09/24/22 Anesthesia Stop Time: 12:26 Summary Emergency: No
== END 2022-09-24 10:34 | disposition home or self-care (01) ==
LOC: OP CLINIC 10:35
PROVIDERS: PCP Family Medicine; Visit Provider Surgery
DX: Z12.11 Encounter for screening for malignant neoplasm of colon (principal); K57.30 Diverticulosis of large intestine without perforation or abscess without bleeding; K63.5 Polyp of colon; K64.4 Residual hemorrhoidal skin tags; K44.9 Diaphragmatic hernia without obstruction or gangrene; R19.8 Other specified symptoms and signs involving the digestive system and abdomen
CPT/HCPCS: 00813; 43239; 45385; J2704; J3490

== ENCOUNTER 2022-12-13 14:16 | Outpatient (CLI) | payer OTHER, SELFPAY ==
[2022-12-13 22:06] LABS: Chloride* 105 mmol/L (96-114); Potassium* 4.7 mmol/L (3.6-5.1); Sodium* 140 mmol/L (135-149)
[2022-12-13 22:09] LABS: Blood Urea Nitrogen* 15 mg/dL (7-30); Calcium* 9.7 mg/dL (8.4-10.6); Carbon Dioxide* 28 mmol/L (20-32); Creatinine* 0.8 mg/dL (0.5-1.5); Estimated Glomerular Filt Rate 104 ml/min; Glucose* 92 mg/dL (60-115)
[2022-12-13 22:10] LABS: Magnesium* 2.2 mg/dL (1.5-2.6)
[2022-12-13 23:47] LABS: Vitamin B12* 659 pg/mL (243-894)
[2022-12-16 22:35] LABS: Vitamin D, 1,25-Dihydroxy 19.5 pg/mL (19.9-79.3)
== END 2022-12-13 14:17 | disposition home or self-care (01) ==
PROVIDERS: PCP Family Medicine; Visit Provider Family Medicine
DX: D72.829 Elevated white blood cell count, unspecified (principal); I10 Essential (primary) hypertension; Z79.891 Long term (current) use of opiate analgesic; M54.9 Dorsalgia, unspecified; M62.838 Other muscle spasm
CPT/HCPCS: 80048; 82607; 82652; 83735

== ENCOUNTER 2023-04-04 12:34 | Outpatient (CLI) | payer OTHER, SELFPAY ==
[2023-04-04 14:20] VITALS: BP 152/91; PULSE 77
--- NOTE | 2023-04-04 23:56 | W.PM.STED ---
Stress Test Note Date Date Seen: 04/04/23 Date of test: 04/04/23 Providers Primary care provider: Danilo Giordano Stress test physician: Ethel Antunez Stress Test Note Stress test ordered: Stress Echo Indication for test: Shortness of breath Stress test medicine: None Results discussion: Resting EKG: sinus rhythm, 73 beats per minute. Low voltage 3 in AVF. Resting blood pressure: 162/101 Stress test: Patient exercised on treadmill following standard Renny protocol. Patient was able to exercise to 6 minutes 43 seconds, stopping due to exertional limitations. There were no arrhythmias, no significant ST changes or ischemic changes. He achieved 8.1 Mets. He had a maximum heart rate of 149 beats per minute which was 107% of a calculated target heart rate of 139. He had a maximal blood pressure of 164/100 during exercise, giving him a rate pressure product of 23,580. Await echo images to couple this test for a full formal diagnostic. Impression: Subjectively negative, objectively negative EKG portion of this stress test. Follow up suggested: Await echo images. Patient will get a full formal report via ordering primary provider. Patient discharged in stable condition.
== END 2023-04-04 12:35 | disposition home or self-care (01) ==
LOC: STRESS 12:35
PROVIDERS: PCP Family Medicine; Visit Provider Family Medicine
DX: R06.02 Shortness of breath (principal); I10 Essential (primary) hypertension
CPT/HCPCS: 93016; 93325; 93351

== ENCOUNTER 2023-06-05 08:19 | Outpatient (CLI) | payer OTHER, SELFPAY ==
--- OUTSIDE RECORDS SUMMARY | 2023-06-05 08:22 | XMS_ITS | Continuity of Care Document ---
Author Name Unknown Organization [facility] Address [address] [place] [address] Phone Care Team Providers Care Nut Packer Name Role Phone Minesh VARGAS Emma Unavailable Unavailable Allergies, Adverse Reactions, Alerts Substance Reaction Status Criticality NAPROXEN SODIUM Active No Informati on CYCLOBENZAPRINE HCL Active No Infor mation nortriptyline Active No Information naproxen Active No Information Medications Medication Instructions Dosage Effective Dates (start - stop) Status Comments gabapentin 400 mg capsule take 1 capsule by oral route every day 400 MG - Active omeprazole 20 mg tablet,delayed release - Active diazepam 5 mg/mL oral concentrate take 1 milliliter by oral route 2 times every day 5 MG - Active tramadol 50 mg tablet take 1 - 2 tablet by ORAL route every 4 - 6 hours as needed, max 8/day 50 MG - Active hydrocodone 5 mg-acetaminophen 325 mg tablet take 1 tablet by oral route every 6 hours as needed for pain as needed 1.00 tablet - Active tizanidine 4 mg capsule take 2 capsule by oral route 3 times every day 8 MG - Active Procedures Procedure Date OFFICE/OUTPATIENT VISIT, [facility] Advance Directives Directive Yes / No Effective Date File Name No Information Encounters Encounter Description Practice Location Reason(s) For Visit Diagnoses Date Provider Providers Copied on Encounter OFFICE/OUTPAT IENT VISIT, [facility], [address] [place], [id number], [place] tel:[phone] [facility] low back pain (chief complaint) Chronic pain syndromeOther group home (current) drug therapyPain in right hipLow back pain, unspecified 3 Minesh Carter. [id number] [place] [address] [address], [place], [id number] , [place]. tel:[phone] Referring Provider: [facility] [address], [place], [address]. tel:[phone] Family History Family Member Type Diagnosis Age At Onset No Information Payers Payer name Insurance type Covered libertarian ID Mariya gould(s) Umr CI [id number] Social History Type Description Quantity Date Captured Comments Alcohol Use Details No Caffeine Use Details Unknown Tobacco Use Status Current non-smoker Smoking Status Never smoker Non-Smoking Tobacco Use Details : No Details Available : No Details Available Sex Male Chief Complaint And Reason For Visit From encounter dated 04/25/2023 15:20'. low back pain (chief complaint). Description: Severity level is 5. Duration: chronic. It occurs persistently. Location of pain is lower back. The client describes the pain as an ache. Symptoms are aggravated by changing positions, lifting, sitting, standing and twisting. Symptoms are relieved by ice, pain meds/drugs and chiropractic. Reason For Referral Reason For Referral No Information Plan Of Treatment Date Type Action Status Goal Unhealthy drug use screening . Due on due Goal Hepatitis C screening. Due o n due Goal Review Allergy List. Due on due Goal Tobacco Use. Due on due Goal Lipid panel. Due on 023 due Goal FIT. Due on due Goal PHQ-9. Due on du e Goal Zoster vaccine (1st). Due on due Goal FIT-DNA. Due on due Goal Medication Reconciliation. D ue on due Goal Update Social History. Due o n due Goal CT-Colonography. Due on due Goal Height. Due on d ue Goal Weight. Due on d ue History Of Present Illness Encounter Date Complaint History Of Prese nt Illness Comments: Renny is a 57 y/o man here for initial consult for back pain referred by [facility]. Pain started over 2 years ago as hip pain, eventually dx with bursitis. Pain was previously transient, now constant. Described at an achy pain at 5/10 severity. Patient states currently f/w [place] for care. He has been previously dx with Arthritis at L4 and L5. He previously underwent RFA performed on 11/27/2022 which took his pain away for 3 months. Pt has plans to redo RFA on 05/28/2023. Also previously underwent S1 nerve root injections with minimal benefit. He reports having been referred to [facility] for EMG previously, but [facility] suggested that he didn't need it.The patient is currently managed on Tramadol 8/day from his PCP. Also takes 400 mg Gabapentin and 2 ibuprofen in morning. He inquires today about a Vicodin script, as neither his PCP nor [place] will prescribe. Patient is interested in pain management through [facility]. No other concerns today. low back pain Severity level i s 5. Duration: chronic. It occurs persistently. Location of pain is lower back. The client describes the pain as an ache. Symptoms are aggravated by changing positions, lifting, sitting, standing and twisting. Symptoms are relieved by ice, pain meds/drugs and chiropractic. Functional Status Date Functional Assessmen t No Information Instructions Date Instruction Additional Infor mation No Information Assessments Type Assessment Date assessment Chronic pain syndrome 3 assessment Other group home (current) drug t herapy impression This is my first aleja luation of the patient. 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 Pain started over 2 years ago as hip pain, eventually dx with bursitis. Pain was previously transient, now constant. Described at an achy pain at 5/10 severity. Patient states currently f/w [place] for care. He has been previously dx with Arthritis at L4 and L5. He previously had an RFA performed on 11/27/2022 which took his pain away for 3 months. Pt has plans to redo RFA on 05/28/2023. Also previously had S1 nerve root injections with minimal benefit. He reports having been referred to [facility] for EMG previously, but [facility] suggested that he didn't need it. impression The patient is curre ntly managed on Tramadol 8/day from his PCP. Also takes 400 mg Gabapentin and 2 ibuprofen in morning. He inquires today about a Vicodin script, as neither his PCP nor [place] will prescribe. MNPMP queried and is consistent with the patient's medication history. Criminal background check showed no concerning convictions. assessment Pain in right hip assessment Low back pain, unspecified impression Pain in hip, and eventual dx of bursitis. impression He has been previous ly dx with Arthritis at L4 and L5. He previously had an RFA performed on 11/27/2022 which took his pain away for 3 months. Pt has plans to redo RFA on 05/28/2023. Also previously had S1 nerve root injections with minimal benefit Mental Status Date Cognitive Assessment Orientation - [place] ed to time, place, person, situation. Patient Care Teams Name Effective Dates (start - stop) Status Members No Information
--- NOTE | 2023-06-05 09:00 | CRLHL7_ITS ---
For Patients: As a result of the Century Cures Act, medical imaging exams and procedure reports are released immediately into your electronic medical record. You may view this report before your referring provider. If you have questions, please contact your health care provider. Indication: RT lower abdomen and back pain Comparison: 06/29/2021 Technique: CT of the abdomen and pelvis with IV contrast. 93 mL Isovue 370. Findings: Limited views of the lung bases demonstrate no suspicious pulmonary opacities. No pleural effusions. Liver is non cirrhotic in morphology. No suspicious liver lesion. Patent portal and hepatic veins. No intra or extrahepatic biliary ductal dilatation. No gallbladder distention. The spleen is normal in size. The pancreas and bilateral adrenal glands appear unremarkable. The kidneys enhance symmetrically. No hydronephrosis. Nonobstructive bowel. Severe colonic diverticulosis. The appendix is normal in appearance. No free air or free fluid in the abdomen or pelvis. Mildly prominent lymph nodes, not pathologically enlarged at the mesenteric root, with mild encapsulation, could be mild mesenteritis, similar to previous. The prostate is mildly prominent in size. Probable small right ureterocele or pseudo ureterocele at the insertion into the urinary bladder (see image 137, series 2). Bilateral renal collecting systems are duplicated but appear to join distally near the insertion, although unclear from this exam. Previous bilateral inguinal hernia repair. No evidence of recurrence. No aggressive appearing osseous lesions. No abdominal aortic aneurysm. Patent proximal visceral arteries. Impression: 1. Probable small right ureterocele or pseudo ureterocele at the insertion into the urinary bladder. Duplicated bilateral renal collecting systems. Further evaluation could be obtained with CT urogram. 2. Previous bilateral inguinal hernia repair. No evidence of recurrence. 3. Mildly prominent lymph nodes, not pathologically enlarged at the mesenteric root, with mild encapsulation, could be mild mesenteritis, similar to previous. Please note that all CT scans at this facility use dose modulation, iterative reconstruction, and/or weight-based dosing when appropriate to reduce radiation dose to as low as reasonably achievable. Dictated by Larry Varghese MD @ 06/05/2023 10:54:37 AM (Electronically Signed)
== END 2023-06-05 08:20 | disposition home or self-care (01) ==
LOC: CT 08:20
PROVIDERS: PCP Family Medicine; Visit Provider Family Medicine
DX: R10.9 Unspecified abdominal pain (principal); N28.89 Other specified disorders of kidney and ureter; M54.9 Dorsalgia, unspecified
CPT/HCPCS: 74177; Q9967

== ENCOUNTER 2023-09-12 13:40 | Outpatient (CLI) | payer OTHER, SELFPAY ==
--- OUTSIDE RECORDS SUMMARY | 2023-09-12 13:44 | XMS_ITS | Continuity of Care Document ---
Author Name Unknown Organization [facility] Address [address] [place] [address] Phone Care Team Providers Care Cloud Security Architect Name Role Phone Minesh VARGAS Emma Unavailable [...] - Active Procedures Procedure Date OFFICE/OUTPATIENT VISIT, [facility] Advance Directives Directive Yes / No Effective Date File Name No Information Encounters Encounter Description Practice Location Reason(s) For Visit Diagnoses Date Provider Providers Copied on Encounter OFFICE/OUTPAT IENT VISIT, [facility], [address] [place], [id number], [place] tel:[phone] [facility] low back pain (chief complaint) Chronic pain syndromeOther detention (current) drug therapyPain in right hipLow back pain, unspecified 3 Minesh Carter. [id number] [place] [address] [address], [place], [id number] , [place]. tel:[phone] Referring Provider: [facility] [address], [place], [address]. tel:[phone] Family History Family Member Type Diagnosis Age At Onset No Information Payers Payer name Insurance type Covered green party ID Mariya gould(s) Umr CI [id number] Social History Type Description Quantity Date Captured [...] initial consult for back pain referred by [facility]. Pain started over 2 years ago as hip pain, eventually dx with bursitis. Pain was previously transient, now constant. Described at an achy pain at 5/10 severity. Patient states currently f/w [place] for care. He has been previously dx [...] Vicodin script, as neither his PCP nor [place] will prescribe. Patient is interested in pain management through [facility]. No other concerns today. low back pain [...] assessment Chronic pain syndrome 3 assessment Other detention (current) drug t herapy impression This is my first aleja luation of the patient. 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 Pain started over 2 years ago as hip pain, eventually dx with bursitis. Pain was previously transient, now constant. Described at an achy pain at 5/10 severity. Patient states currently f/w [place] for care. He has been previously dx [...] Vicodin script, as neither his PCP nor [place] will prescribe. MNPMP queried and is consistent [...] Mental Status Date Cognitive Assessment Orientation - [place] ed to time, place, person, situation. Patient Care Teams Name Effective Dates (start - stop) Status Members No Information
== END 2023-09-12 13:41 | disposition home or self-care (01) ==
PROVIDERS: PCP Family Medicine; Visit Provider Family Medicine
DX: Z00.00 Encounter for general adult medical examination without abnormal findings (principal); I10 Essential (primary) hypertension; E83.51 Hypocalcemia; D72.829 Elevated white blood cell count, unspecified; G89.29 Other chronic pain; R25.2 Cramp and spasm; Z12.5 Encounter for screening for malignant neoplasm of prostate; Z13.6 Encounter for screening for cardiovascular disorders; Z13.29 Encounter for screening for other suspected endocrine disorder
CPT/HCPCS: 80053; 80061; 82306; 83735; 84153; 84443; 85651; 86431

== ENCOUNTER 2023-09-26 09:50 | Outpatient (RCR) | payer OTHER, SELFPAY | END 2023-12-30 16:00 | disposition home or self-care (01) | PROVIDERS: PCP Family Medicine; Visit Provider Orthopaedic Surgery | DX: M77.00 Medial epicondylitis, unspecified elbow (principal); M25.561 Pain in right knee; Z51.89 Encounter for other specified aftercare | CPT/HCPCS: 97110; 97162 ==

== ENCOUNTER 2024-05-07 13:45 | Outpatient (RCR) | payer OTHER, SELFPAY ==
--- NOTE | 2024-04-02 15:45 | OT.OPOE ---
OT Outpatient Ortho Eval OT Outpatient Ortho Eval* Start: 04/02/24 14:15 Freq: Status: Active Protocol: Document 04/02/24 14:17 REGULO (Rec: 04/02/24 15:40 REGULO [id number]) E-signed By Yanira London, OTR/L, CLT OT OP Ortho Eval Details Complexity Complexity Low Insurance Information Other Insurance UMR Outpatient History/Precautions Current Condition/Medical Diagnosis Referring Provider Dr. Danilo Giordano Treatment Diagnosis Pain in the R elbow M25.521, Localized Edema R60.0 Date of Onset 2 months ago Other Precautions None noted in the provider's chart, encouraged patient to not lift/carry/pull heavy items in the R UE and to avoid excessive bend at the elbow and highly repetitive movements. Medical DX: R elbow medial epicondylitis (patient also has pain on the lateral side) Other Conditions PMH includes but is not limited to: Medial epicondylitis, Right elbow (Acute) Primary osteoarthritis of right knee (Acute) Mild medial and patellofemoral DJD M17.11 - Unilateral primary osteoarthritis, right knee ( ICD-10) Medial epicondylitis (Acute) M77.00 - Medial epicondylitis, unspecified elbow (ICD-10) Knee pain, right (Acute) M25.561 - Pain in right knee ( ICD-10) Abdominal pain (Acute) R10.9 - Unspecified abdominal pain (ICD-10) Muscle cramps (Acute) R25.2 - Cramp and spasm (ICD- 10) Urinary frequency (Acute) R35.0 - Frequency of micturition (ICD-10) Shortness of breath (Acute) R06.02 - Shortness of breath ( ICD-10) HTN (hypertension) (Acute) I10 - Essential (primary) hypertension (ICD-10) Muscle spasm of right leg ( Acute) M62.838 - Other muscle spasm ( ICD-10) Testicular pain, right (Acute) N50.811 - Right testicular pain (ICD-10) Sinus congestion (Acute) R09.81 - Nasal congestion (ICD -10) Chronic pain (Acute) G89.29 - Other chronic pain ( ICD-10) Health care maintenance (Acute ) Z00.00 - Encounter for general adult medical examination without abnormal findings (ICD -10) Metatarsalgia of right foot ( Acute) M77.41 - Metatarsalgia, right foot (ICD-10) Leukocytosis (Acute) D72.829 - Elevated white blood cell count, unspecified (ICD- 10) Bilateral leg cramps (Acute) R25.2 - Cramp and spasm (ICD- 10) Numbness of right foot (Acute) R20.0 - Anesthesia of skin ( ICD-10) Leg pain, bilateral (Acute) M79.604 - Pain in right leg ( ICD-10) M79.605 - Pain in left leg ( ICD-10) Prostatitis (Acute) N41.9 - Inflammatory disease of prostate, unspecified (ICD- 10) Pain of right hip (Acute) M25.551 - Pain in right hip ( ICD-10) Overactive bladder (Acute) N32.81 - Overactive bladder ( ICD-10) Irritable bowel syndrome ( Acute) K58.9 - Irritable bowel syndrome without diarrhea (ICD -10) Gastroesophageal reflux disease (Acute) K21.9 - Gastro-esophageal reflux disease without esophagitis (ICD-10) Bilateral inguinal hernia ( Acute) K40.20 - Bilateral inguinal hernia, without obstruction or gangrene, not specified as recurrent (ICD-10) Back pain (Acute) M54.9 - Dorsalgia, unspecified (ICD-10) Atypical facial pain (Acute) G50.1 - Atypical facial pain ( ICD-10) Anxiety disorder (Acute ) F41.9 - Anxiety disorder, unspecified (ICD-10) Medications: diazepam 5 mg PO BID PRN diphenoxylate-atropine 2.5-0. 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 Patient is unable to state an exact date of onset, no trauma or acute injury, gradual onset that first began 2 months ago. Patient stated that he tried doing some exercises that he found online but they didn't help. Underwater Roboticist/ pinches on the R are less than the L, patient is R hand dominant, so it would be anticipated for the R to be 7- 10% stronger than the L side. No loss of AROM and pain reported at 10 (worse at the end of the day after activity /work). Pain Assessment Pain Present Pain Present Pain Reported Location Right Elbow Description Pressure,Throbbing Intensity 4 Range of Motion and Strength Shoulder Range of Motion and Strength Shoulder Range of Motion and Strength No impairment in AROM Elbow/Forearm Range of Motion and Strength Elbow/Forearm Range of Motion and No impairment in AROM Strength Wrist Range of Motion and Strength Wrist Range of Motion and Strength No impairment in AROM Hand/Finger/Thumb Range of Motion and Strength Hand/Finger/Thumb Range of Motion and No impairment in AROM Strength Hand Pinch/Paper Stacker Strength Hand Right Paper Stacker Strength Position 1 (lbs) 82 Paper Stacker Strength Position 2 (lbs) 40 Lateral Pinch Strength (lbs) 22 Three Point Pinch (lbs) 22 Tip Pinch Strength (lbs) 14 Left Paper Stacker Strength Position 1 (lbs) 78 Paper Stacker Strength Position 2 (lbs) 65 Lateral Pinch Strength (lbs) 24 Three Point Pinch (lbs) 22 Tip Pinch Strength (lbs) 20 Upper Extremity Special Tests Elbow Cozens Test Negative Right,Positive Right Upper Extremity Special Tests Comments Comments Umang?s test = Resisted third digit extension ( positive on the R, negative on the left) OT Problems Problems Problems Decreased Strength,Pain, Lifting,Gripping,Pinching Other Problems Opening Containers,Sleeping Patient Potential Good Assessment Assessment Assessment Renny is a pleasant 58-year- old R hand dominant male who saw his PCP on 03/13/24 with a chief compliant of R (dominant UE) elbow pain which is both on the medial and lateral aspect of his elbow and sometimes radiates up the arm. Patient is unable to state an exact date of onset, no trauma or acute injury, gradual onset that first began 2 months ago. Patient stated that he tried doing some exercises that he found online but they didn't help. Underwater Roboticist/ pinches on the R are less than the L, patient is R hand dominant, so it would be anticipated for the R to be 7- 10% stronger than the L side. No loss of AROM and pain reported at 4/10 (worse at the end of the day after activity /work). Patient is an ideal candidate for therapy, he was pleasant, alert, orientated, asked great questions in session, was an active listener to information presented to him and showed signs of motivation/ willingness to follow the presented protocol in POC. PLAN: lateral/medial epicondylitis protocol, use of Ultrasound, Ionto, Manual treatment (MONICA), development of an individualized home exercise program that progresses as patient is able to take on increased challenge and pain symptoms decrease with patient education on biomechanics/ ergonometric/activity modifications to decrease flare-ups. 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 Set Goals Goals Set with Patient Yes Goals Goals 1. Patient will verbalize 3 activity modifications to decrease abusive/overloading of the tendons. -progressing, continue 2. 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 - progressing, continue 3. Through activity participation in skilled therapy sessions, and consistency in performing a customized HEP, patient will improve capacity of tendons and muscles to manage load in order to have less pain with ADLs, work, leisure activities and IADLs. -progressing, continue Target Date 6 weeks Treatment Plan Treatment Plan Evaluation,Edema Control, Iontophoresis,Manual Therapy, Ultrasound,Therapeutic Exercise,Self Care/Home Management Expected Frequency 1-2x Week Expected Duration 8-10 Weeks Home Program Home Program Home Program Initiated Home Program Specifics Tennis Elbow Stretches to the forearm extensors and flexors; Cross Friction Massage to the extensor carpi radialis (ECR) & Ice cup massage after repetitive/heavy activities or when sore/painful (PRN) Recertification Information Recertification Information Initial Certification Date 04/02/24 Recertification Due Date 07/01/24 Click To Default 'Per treatment plan' Per treatment plan Continued Plan of Care and Interventions Per treatment plan Provider Signature Shows Agreement With POC & Medical Necessity Physician Comment/Change Comment or Changes Physician NPI Number #
== END 2024-09-04 23:59 | disposition home or self-care (01) ==
PROVIDERS: PCP Family Medicine; Visit Provider Family Medicine
DX: M77.00 Medial epicondylitis, unspecified elbow (principal); Z51.89 Encounter for other specified aftercare
CPT/HCPCS: 97035; 97110; 97140; 97165; X5282

== ENCOUNTER 2024-09-25 09:04 | Outpatient (CLI) | payer OTHER, SELFPAY ==
--- OUTSIDE RECORDS SUMMARY | 2024-09-25 09:08 | XMS_ITS | Continuity of Care Document ---
Author Organization [facility] Address [address] [place] [address] Phone Care Team Providers Care Operations Systems Specialist Name Role Phone Minesh VARGAS, Emma Unavailable Unavailable Allergies, Adverse Reactions, Alerts [...] Procedure Date OFFICE/OUTPATIENT VISIT, [facility] Advance Directives Directive Yes / No Effective Date File Name No Information Encounters Encounter Description Practice Location Reason(s) For Visit Diagnoses Date Provider Providers Copied on Encounter OFFICE/OUTPAT IENT VISIT, [facility], [address] [place], [id number], [place] tel:[phone] [facility] [place] low back pain (chief complaint) Chronic pain syndromeOther longterm (current) drug therapyPain in right hipLow back pain, unspecified 3 Minesh Carter. [id number] [place] [address] [address], [place], [id number] , [place]. tel:[phone] Referring Provider: Danilo Giordano, [facility] [address], [place], [address]. tel:[phone] Family History Family Member Type Diagnosis Age At Onset No Information Payers Payer name Insurance type Covered libertarian ID Mariya gould(s) r [id number] Social History Type Description Quantity Date Captured [...] Of Treatment Date Type Action Status Goal Weight. Due on d ue Goal Height. Due on d ue Goal CT-Colonography. Due on due Goal Update Social History. Due o n due Goal Medication Reconciliation. D ue on due Goal FIT-DNA. Due on due Goal Zoster vaccine (1st). Due on due Goal PHQ-9. Due on du e Goal FIT. Due on due Goal Lipid panel. Due on 023 due Goal Tobacco Use. Due on 023 due Goal Review Allergy List. Due on due Goal Hepatitis C screening. Due o n due Goal Unhealthy drug use screening . Due on due History Of Present Illness Encounter Date Complaint History Of Prese nt Illness low back pain Severity level i s 5. Duration: chronic. It occurs persistently. Location of pain is lower back. The client describes the pain as an ache. Symptoms are aggravated by changing positions, lifting, sitting, standing and twisting. Symptoms are relieved by ice, pain meds/drugs and chiropractic. Comments: Renny is a 57 y/o man here for initial consult for back pain referred by [facility]. Pain started over 2 years ago as hip pain, eventually dx with bursitis. Pain was previously transient, now constant. Described at an achy pain at 5/10 severity. Patient states currently f/w [facility] for care. He has been previously dx [...] Vicodin script, as neither his PCP nor [facility] will prescribe. Patient is interested in pain management through [facility]. No other concerns today. 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 [employer] is reviewed and appropriate.?Patient is a 57 y/o man here for initial consult for back pain referred by [facility]. Pain started over 2 years ago as hip pain, eventually dx with bursitis. Pain was previously transient, now constant. Described at an achy pain at 5/10 severity. Patient states currently f/w [facility] for care. He has been previously dx [...] Vicodin script, as neither his PCP nor [facility] will prescribe. [facility] queried and is consistent [...] Mental Status Date Cognitive Assessment Orientation - [place] ed to time, place, person, situation. Patient Care Teams Name Effective Dates (start - stop) Status Members No Information
== END 2024-09-25 09:05 | disposition home or self-care (01) ==
PROVIDERS: PCP Family Medicine; Visit Provider Family Medicine
DX: Z00.00 Encounter for general adult medical examination without abnormal findings (principal); I10 Essential (primary) hypertension; E83.51 Hypocalcemia; M54.9 Dorsalgia, unspecified; R20.0 Anesthesia of skin; F41.9 Anxiety disorder, unspecified; D72.829 Elevated white blood cell count, unspecified; Z12.5 Encounter for screening for malignant neoplasm of prostate; Z13.6 Encounter for screening for cardiovascular disorders
CPT/HCPCS: 80053; 80061; G0103

== ENCOUNTER 2025-03-18 08:29 | Outpatient (CLI) | payer OTHER, SELFPAY | END 2025-03-18 08:30 | disposition home or self-care (01) | LOC: NFLDREF 03-21 13:41 | PROVIDERS: PCP Family Medicine; Referring Provider Family Medicine; Visit Provider Family Medicine | DX: R68.82 Decreased libido (principal); R53.83 Other fatigue; N52.9 Male erectile dysfunction, unspecified; D64.9 Anemia, unspecified | CPT/HCPCS: 80076; 84270; 84402; 84403 ==

== ENCOUNTER 2025-10-04 08:25 | Outpatient (CLI) | payer OTHER, SELFPAY | END 2025-10-04 08:26 | disposition home or self-care (01) | LOC: NFLDREF 10-07 11:05 | PROVIDERS: PCP Family Medicine; Referring Provider Family Medicine; Visit Provider Family Medicine | DX: Z00.00 Encounter for general adult medical examination without abnormal findings (principal); I10 Essential (primary) hypertension; Z13.6 Encounter for screening for cardiovascular disorders; Z12.5 Encounter for screening for malignant neoplasm of prostate; N32.81 Overactive bladder; N52.9 Male erectile dysfunction, unspecified | CPT/HCPCS: 80053; 80061; G0103 ==

== ENCOUNTER 2025-11-15 09:56 | Outpatient (CLI) | payer OTHER, SELFPAY | END 2025-11-15 09:57 | disposition home or self-care (01) | PROVIDERS: PCP Family Medicine; Visit Provider Family Medicine | DX: R68.82 Decreased libido (principal); I10 Essential (primary) hypertension; N41.9 Inflammatory disease of prostate, unspecified; R53.83 Other fatigue | CPT/HCPCS: 80048; 84153; 84154; 84270; 84402; 84403 ==